=== PATIENT | female | born 1930 | race American Indian/Alaskan Native ===

== ENCOUNTER 2017-07-08 09:48 | Emergency (ER) | payer MEDICARE, OTHER ==
[~2017-07-08] VITALS: Ht 165.1 cm; Wt 75.5 kg
[~2017-07-08 09:48] MED LIST: ADULT LOW DOSE81 MG PO; ALBUTEROL SULF8.5 GM INH; ASPIRIN81 MG PO; AZITHROMYCIN500 MG PO; BENZONATATE200 MG PO; CARVEDILOL3.125 MG PO; COMBIVENT RESPIM4 GM INH; COREG3.125 MG PO; COZAAR25 MG PO; CYCLOBENZAPRINE10 MG PO; DEMADEX10 MG PO; FUROSEMIDE20 MG PO; ISOSORBIDE MONO30 MG PO; KLOR-CON M2020 MEQ PO; LASIX20 MG PO; LASIX40 MG PO; LEVAQUIN500 MG PO; LISINOPRIL5 MG PO; METOPROLOL TART25 MG PO; NICORETTE2 MG MM; NITROSTAT0.4 MG SL; NORCO 5-325 TA1 EACH PO; ROSUVASTATIN CA10 MG PO; SPIRIVA18 MCG INH; SUDOGEST60 MG PO; TOPROL XL25 MG PO; ZOCOR40 MG PO
[2017-07-08] MEDS ORDERED: PROVENTIL HFA6.7 GM INH (12:01)
[2017-07-08] MEDS ORDERED: DOXYCYCLINE HY100 MG PO (12:01)
[2017-07-08] MEDS ORDERED: PREDNISONE20 MG PO (12:01)
--- NOTE | 2017-07-10 17:13 | EKG ---
[facility] [address] [facility] [place] [address] Signed Normal sinus rhythm ST \T\ T wave abnormality, consider lateral ischemia Prolonged QT Abnormal ECG When compared with ECG of 03-SEP-2016 08:10, No significant change was found Confirmed by ANDER AYERS MD ([id number]) on 07/10/2017 5:13:39 PM Electronically Signed By: ANDER AYERS MD 07/10/17 1713 PATIENT NAME: CHIQUITA TORIBIO ALFREDITO Electrocardiogram DATE OF : 32 PHYSICIAN: ANDER AYERS MD REPORT #: [id number] REPORT IS CONFIDENTIAL AND NOT TO BE RELEASED WITHOUT AUTHORIZATION
== END 2017-07-08 12:14 | disposition home or self-care (01) ==
LOC: ED 09:48
DX: J44.9 Chronic obstructive pulmonary disease, unspecified (principal); I50.9 Heart failure, unspecified; I25.10 Atherosclerotic heart disease of native coronary artery without angina pectoris; I10 Essential (primary) hypertension; F17.200 Nicotine dependence, unspecified, uncomplicated; Z87.01 Personal history of pneumonia (recurrent); Z88.0 Allergy status to penicillin; Z79.899 Other long term (current) drug therapy; Z79.82 Long term (current) use of aspirin
CPT/HCPCS: 71020; 80053; 83880; 84484; 85025; 93005; 93010; 94640; 99284

== ENCOUNTER 2017-10-30 12:16 | Emergency (ER) | payer MEDICARE, OTHER ==
[~2017-10-30] VITALS: Ht 165.1 cm; Wt 75.3 kg
[~2017-10-30 12:16] MED LIST changes: +DOXYCYCLINE HY100 MG PO; +PREDNISONE20 MG PO; +PROVENTIL HFA6.7 GM INH
== END 2017-10-30 16:32 | disposition home or self-care (01) ==
LOC: ED 12:16
DX: K52.9 Noninfective gastroenteritis and colitis, unspecified (principal); I10 Essential (primary) hypertension; F17.200 Nicotine dependence, unspecified, uncomplicated; Z87.01 Personal history of pneumonia (recurrent); Z88.0 Allergy status to penicillin; Z79.899 Other long term (current) drug therapy; Z79.82 Long term (current) use of aspirin
CPT/HCPCS: 80053; 81001; 83690; 85025; 96361; 96374; 99284; J2405; J7040

== ENCOUNTER 2017-12-09 11:08 | Emergency (ER) | payer MEDICARE, OTHER ==
[~2017-12-09] VITALS: Ht 160 cm; Wt 160.0 kg
--- NOTE | 2017-12-11 19:05 | EKG ---
[facility] [address] [facility] [place] [address] Signed Sinus bradycardia T wave abnormality, consider lateral ischemia Abnormal ECG When compared with ECG of 08-JUL-2017 10:32, No significant change was found Confirmed by DON SALAZAR MD ([id number]) on 12/11/2017 7:05:34 PM Electronically Signed By: DON SALAZAR MD 12/11/17 1905 PATIENT NAME: MALUCHIQUITA Electrocardiogram DATE OF : 32 PHYSICIAN: DON SALAZAR MD REPORT #: [id number] REPORT IS CONFIDENTIAL AND NOT TO BE RELEASED WITHOUT AUTHORIZATION
== END 2017-12-09 13:46 | disposition home or self-care (01) ==
LOC: ED 11:08
DX: I95.1 Orthostatic hypotension (principal); I10 Essential (primary) hypertension; F17.200 Nicotine dependence, unspecified, uncomplicated; Z87.01 Personal history of pneumonia (recurrent); Z95.5 Presence of coronary angioplasty implant and graft; Z88.0 Allergy status to penicillin; Z79.82 Long term (current) use of aspirin; Z79.899 Other long term (current) drug therapy
CPT/HCPCS: 80053; 81001; 84484; 85025; 93005; 93010; 96360; 99283; J7040

== ENCOUNTER 2018-03-16 17:38 | Inpatient (IN) | payer MEDICARE, OTHER ==
[~2018-03-16] VITALS: Ht 160 cm; Wt 78.7 kg
--- NOTE | 2018-03-17 08:04 | EKG ---
[facility] [address] [facility] [place] [address] Signed Normal sinus rhythm ST \T\ T wave abnormality, consider inferolateral ischemia Abnormal ECG When compared with ECG of 09-DEC-2017 11:20, No significant change was found Confirmed by DON SALAZAR MD ([id number]) on 03/17/2018 8:04:33 AM Electronically Signed By: DON SALAZAR MD 03/17/18 0804 PATIENT NAME: VIREGN TORIBIORADHA GLASER Electrocardiogram DATE OF : 32 PHYSICIAN: DON SALAZAR MD REPORT #: [id number] REPORT IS CONFIDENTIAL AND NOT TO BE RELEASED WITHOUT AUTHORIZATION
[2018-03-18] MEDS ORDERED: CLINDAMYCIN HC300 MG PO (09:12)
[2018-03-18] MEDS ORDERED: MUCINEX600 MG PO (09:13)
[2018-03-18] MEDS ORDERED: PREDNISONE20 MG PO (09:14)
== END 2018-03-18 11:20 | disposition home or self-care (01) | DRG 192 ==
LOC: ED 17:38 → MS 21:03
PROVIDERS: ADMIT Internal Medicine
DX: J44.1 Chronic obstructive pulmonary disease with (acute) exacerbation (principal); I11.0 Hypertensive heart disease with heart failure; I50.9 Heart failure, unspecified; F17.210 Nicotine dependence, cigarettes, uncomplicated; T17.990A Other foreign object in respiratory tract, part unspecified in causing asphyxiation, initial encounter; J30.1 Allergic rhinitis due to pollen; Z88.0 Allergy status to penicillin; Z79.82 Long term (current) use of aspirin; Z79.899 Other long term (current) drug therapy
CPT/HCPCS: 36415; 71045; 71260; 80048; 80053; 83605; 83735; 83880; 84484; 85025; 85379; 93005; 93010; 94640; 94760; 94762; J1650; J7040; J7512; Q9967

== ENCOUNTER 2018-11-29 10:56 | Emergency (ER) | payer MEDICARE, OTHER ==
[~2018-11-29] VITALS: Ht 160 cm; Wt 8.0 kg
[~2018-11-29 10:56] MED LIST changes: +CLINDAMYCIN HC300 MG PO; +IPRAT-ALBUT 0.5-3 ML INH; +MUCINEX600 MG PO
[2018-11-29] MEDS ORDERED: DOXYCYCLINE HY100 MG PO (13:12)
[2018-11-29] MEDS ORDERED: PREDNISONE20 MG PO (13:12)
== END 2018-11-29 13:24 | disposition home or self-care (01) ==
LOC: ED 10:56
DX: J44.1 Chronic obstructive pulmonary disease with (acute) exacerbation (principal); I10 Essential (primary) hypertension; Z87.01 Personal history of pneumonia (recurrent); F17.200 Nicotine dependence, unspecified, uncomplicated; Z91.09 Other allergy status, other than to drugs and biological substances; Z88.0 Allergy status to penicillin; Z79.52 Long term (current) use of systemic steroids; Z79.899 Other long term (current) drug therapy; Z79.82 Long term (current) use of aspirin
CPT/HCPCS: 94640; 99283; J7512

== ENCOUNTER 2020-10-26 09:19 | Emergency (ER) | payer MEDICARE, OTHER ==
[~2020-10-26] VITALS: Ht 160 cm; Wt 77.4 kg
[2020-10-26] MEDS ORDERED: LASIX20 MG PO (09:36)
[2020-10-26] MEDS ORDERED: K-TAB10 MEQ PO (13:34)
[2020-10-26] MEDS ORDERED: LASIX40 MG PO (13:34)
[2020-10-26] MEDS ORDERED: MEDROL4 M1 PO (13:34)
--- NOTE | 2020-10-27 00:01 | EKG ---
[facility] [address] [facility] [place] [address] Signed Normal sinus rhythm Nonspecific T wave abnormality Prolonged QT Abnormal ECG When compared with ECG of 16-MAR-2018 18:18, ST no longer elevated in Inferior leads Nonspecific T wave abnormality has replaced inverted T waves in Inferior leads Confirmed by DON SALAZAR MD ([id number]) on 10/27/2020 12:00:48 AM Electronically Signed By: DON SALAZAR MD 10/27/20 0001 PATIENT NAME: CHIQUITA TORIBIO ALFREDITO Electrocardiogram DATE OF : 32 PHYSICIAN: DON SALAZAR MD REPORT #: [id number] REPORT IS CONFIDENTIAL AND NOT TO BE RELEASED WITHOUT AUTHORIZATION
== END 2020-10-26 13:53 | disposition home or self-care (01) ==
LOC: ED 09:19
DX: J44.1 Chronic obstructive pulmonary disease with (acute) exacerbation (principal); I11.0 Hypertensive heart disease with heart failure; I50.9 Heart failure, unspecified; F17.200 Nicotine dependence, unspecified, uncomplicated; Z88.0 Allergy status to penicillin; Z79.899 Other long term (current) drug therapy
CPT/HCPCS: 71045; 80053; 83880; 84484; 85025; 93005; 93010; 94640; 96374; 96375; 99285-25; J1940; J2930

== ENCOUNTER 2021-04-12 08:33 | Emergency (ER) | payer MEDICARE, OTHER ==
[~2021-04-12] VITALS: Ht 160 cm; Wt 77.4 kg
[~2021-04-12 08:33] MED LIST changes: +K-TAB10 MEQ PO; +MEDROL4 M1 PO
[2021-04-12] MEDS ORDERED: METOPROLOL SUCC25 MG PO ×2 (08:45→13:15)
[2021-04-12] MEDS ORDERED: LOSARTAN POTASS50 MG PO (13:15)
[2021-04-12] MEDS ORDERED: LASIX20 MG PO (13:15)
--- NOTE | 2021-04-13 07:08 | EKG ---
[facility] [address] [facility] [place] [address] Signed Normal sinus rhythm ST \T\ T wave abnormality, consider lateral ischemia Prolonged QT Abnormal ECG When compared with ECG of 26-OCT-2020 09:35, Nonspecific T wave abnormality, improved in Inferior leads Inverted T waves have replaced nonspecific T wave abnormality in Lateral leads Confirmed by DON SALAZAR MD ([id number]) on 04/13/2021 7:07:45 AM Electronically Signed By: DON SALAZAR MD 04/13/21 0708 PATIENT NAME: CHIQUITA TORIBIO Electrocardiogram DATE OF : 32 PHYSICIAN: DON SALAZAR MD REPORT #: [id number] REPORT IS CONFIDENTIAL AND NOT TO BE RELEASED WITHOUT AUTHORIZATION
[2021-06-02] MEDS ORDERED: NEURONTIN100 MG PO (12:37)
[2021-06-02] MEDS ORDERED: AMITRIPTYLINE H10 MG PO (12:39)
[2021-06-02] MEDS ORDERED: IPRAT-ALBUT 0.5-3 ML INH (12:44)
[2021-06-02] MEDS ORDERED: CRESTOR10 MG PO (12:45)
[2021-06-02] MEDS ORDERED: TORSEMIDE20 MG PO (12:45)
[2021-06-02] MEDS ORDERED: TOPROL XL25 MG PO (12:45)
[2021-06-02] MEDS ORDERED: AVAPRO75 MG PO (12:46)
== END 2021-04-12 13:33 | disposition home or self-care (01) ==
LOC: ED 08:33
DX: I11.0 Hypertensive heart disease with heart failure (principal); I50.9 Heart failure, unspecified; J44.9 Chronic obstructive pulmonary disease, unspecified; F17.200 Nicotine dependence, unspecified, uncomplicated; Z88.0 Allergy status to penicillin; Z79.899 Other long term (current) drug therapy; Z79.82 Long term (current) use of aspirin
CPT/HCPCS: 71045; 80053; 83735; 83880; 84484; 85025; 93005; 93010; 94640; 96374; 96375; 99285-25; J1100; J1940

== ENCOUNTER 2021-04-16 16:47 | Emergency (ER) | payer MEDICARE, OTHER ==
[~2021-04-16] VITALS: Ht 160 cm; Wt 77.4 kg
[~2021-04-16 16:47] MED LIST changes: +LOSARTAN POTASS50 MG PO; +METOPROLOL SUCC25 MG PO
--- OUTSIDE RECORDS SUMMARY | 2021-04-16 16:50 | XMS ---
PreManage Notification: CHIQUITA TORIBIO Security Is Support Analyst Events No recent Security Events currently on file CRITERIA MET - [facility] - 2 Visits in 30 Days CARE PROVIDERS There are no care providers on record at this time. [facility]ange has no Care Guidelines for this patient. Laura VISIT COUNT (12 MO.) [address] [facility] TOTAL 3 NOTE: Visits indicate total known visits. ED/[facility] VISIT TRACKING (12 MO.) 04/16/2021 16:47 [facility] [place] TYPE: Emergency COMPLAINT: - BITE 04/12/2021 08:33 [facility] [place] TYPE: Emergency COMPLAINT: - DIFFICULTY BREATHING DIAGNOSES: - meterman (current) use of aspirin - Hypertensive heart disease with heart failure - Other buttermaker helper (current) drug therapy - Shortness of breath - Chronic obstructive pulmonary disease, unspecified - Heart failure, unspecified - Nicotine dependence, unspecified, uncomplicated - Allergy status to penicillin 10/26/2020 09:19 [facility] [place] TYPE: Emergency COMPLAINT: - SOB DIAGNOSES: - Hypertensive heart disease with heart failure - Heart failure, unspecified - Nicotine dependence, unspecified, uncomplicated - Allergy status to penicillin - Chronic obstructive pulmonary disease with (acute) exacerbation - Shortness of breath - Other buttermaker helper (current) drug therapy INPATIENT VISIT TRACKING (12 MO.) No inpatient visits to display in this time frame [email or web address]
--- NOTE | 2021-04-18 13:33 | EKG ---
[facility] [address] [facility] [place] [address] Signed Sinus bradycardia Cannot rule out Anterior infarct , age undetermined T wave abnormality, consider lateral ischemia Abnormal ECG When compared with ECG of 12-APR-2021 09:24, No significant change was found Confirmed by ANDER AYERS MD ([id number]) on 04/18/2021 1:32:54 PM Electronically Signed By: ANDER AYERS MD 04/18/21 1333 PATIENT NAME: CHIQUITA TORIBIO ALFREDITO Electrocardiogram DATE OF : 32 PHYSICIAN: ANDER AYERS MD REPORT #: [id number] REPORT IS CONFIDENTIAL AND NOT TO BE RELEASED WITHOUT AUTHORIZATION
[2021-06-02] MEDS ORDERED: NEURONTIN100 MG PO (12:37)
[2021-06-02] MEDS ORDERED: AMITRIPTYLINE H10 MG PO (12:39)
[2021-06-02] MEDS ORDERED: IPRAT-ALBUT 0.5-3 ML INH (12:44)
[2021-06-02] MEDS ORDERED: TOPROL XL25 MG PO (12:45)
[2021-06-02] MEDS ORDERED: CRESTOR10 MG PO (12:45)
[2021-06-02] MEDS ORDERED: TORSEMIDE20 MG PO (12:45)
[2021-06-02] MEDS ORDERED: AVAPRO75 MG PO (12:46)
== END 2021-04-16 21:21 | disposition home or self-care (01) ==
LOC: ED 16:47
DX: R07.89 Other chest pain (principal); I10 Essential (primary) hypertension; J44.9 Chronic obstructive pulmonary disease, unspecified; F17.200 Nicotine dependence, unspecified, uncomplicated; Z88.0 Allergy status to penicillin; Z79.899 Other long term (current) drug therapy
CPT/HCPCS: 71045; 71260; 80053; 83735; 83880; 84484; 85025; 93005; 93010; 99285-25; J1100; Q9967